=== PATIENT | male | born 2000 | race African-American/Black ===

== ENCOUNTER 2023-09-19 17:01 | Inpatient (IN) | payer OTHER ==
[2023-09-19 17:57] VITALS: BMI 23.6
[2023-09-19] MEDS ORDERED: LOPERAMIDE HCL 2 MG CAPSULE PO PRN (19:59)
[2023-09-19] MEDS ORDERED: IBUPROFEN 400 MG TABLET (FP) PO PRN (19:59)
[2023-09-19] MEDS ORDERED: MAG HYDROX/AL HYDROX/SIMETH 30 ML UNIT-DOSE CUP PO PRN (19:59)
[2023-09-19] MEDS ORDERED: MAGNESIUM HYDROX 2400MG/30ML ORAL SUSPENSION 30 ML CUP PO PRN (19:59)
[2023-09-19] MEDS ORDERED: ACETAMINOPHEN 325 MG TABLET (FP) PO PRN (19:59)
[2023-09-19] MEDS ORDERED: BENZOCAINE/MENTHOL (CHLORASEPTIC ) LOZENGE MM PRN (19:59)
[2023-09-19] MEDS ORDERED: METHOCARBAMOL 500 MG TABLET PO PRN (19:59)
[2023-09-19] MEDS ORDERED: POLYETHYLENE GLYCOL (HEALTHYLAX) 3350 17 GM PACKET PO PRN (19:59)
[2023-09-19] MEDS ORDERED: NALOXONE HCL (KLOXXADO) 8 MG SPRAY NS PRN (19:59)
[2023-09-19] MEDS ORDERED: BISMUTH SUBSALICYLATE 524 MG/30 ML PO PRN (19:59)
[2023-09-19] MEDS ORDERED: IBUPROFEN 600 MG TABLET (FP) PO PRN (19:59)
[2023-09-19] MEDS ORDERED: ONDANSETRON *ODT* 4 MG TABLET SL PRN (19:59)
[2023-09-19] MEDS ORDERED: NALOXONE HCL 0.4 MG/ML VIAL IM PRN (19:59)
[2023-09-19] MEDS ORDERED: guaiFENesin 600 MG TABLET.ER (FP) PO PRN (19:59)
[2023-09-19] MEDS ORDERED: BENZONATATE 200 MG CAPSULE PO PRN (19:59)
[2023-09-19] MEDS ORDERED: MELATONIN 5 MG TABLETS PO SCH (22:00)
[2023-09-19] MEDS ORDERED: TUBERCULIN PPD 5 TU/0.1ML VIAL ID ONE (22:54)
[2023-09-19] MEDS: THIAMINE HCL 100 MG TABLET (FP) PO SCH (22:55)
[2023-09-20] MEDS: PRENATAL VITAMINS W/ FOLIC ACID TABLET (FP) PO SCH (10:01)
[2023-09-20] MEDS: NICOTINE 14 MG/24 HOURS TOPICAL PATCH TD SCH (10:01)
[2023-09-20] MEDS: NICOTINE POLACRILEX 2 MG GUM BUC PRN ×2 (10:02→19:50)
[2023-09-20 10:45] LABS: CHLORIDE 106 mmol/L (98-107); POTASSIUM 4.3 mmol/L (3.5-5.1); SODIUM 139 mmol/L (136-145)
[2023-09-20 10:51] LABS: HEMATOCRIT 42.2 % (35.4-49); HEMOGLOBIN 13.9 GM/dL (11.7-16.9); MCH 29.4 pg (25.7-33.7); MCHC 32.9 g/dl (32.0-35.9); MEAN CELL VOLUME 89.4 fl (80-96); MEAN PLT VOLUME 7.3 fl (7.5-11.1); PLATELET COUNT 264 10^3/uL (134-434); RBC 4.71 M/mm3 (4.00-5.60); RDW 14.3 % (11.9-15.9); WHITE BLOOD COUNT 7.2 K/mm3 (4.0-10.0)
[2023-09-20 11:00] LABS: ALBUMIN 3.6 g/dl (3.4-5.0); BLOOD UREA NITROGEN 9.5 mg/dL (7-18)
[2023-09-20 11:01] LABS: BILIRUBIN,TOTAL 0.3 mg/dL (0.2-1); CALCIUM 9.3 mg/dL (8.5-10.1); GLUCOSE,RANDOM 96 mg/dL (74-106)
[2023-09-20 11:02] LABS: ANION GAP 6 mmol/L (4-13); CO2 27 mmol/L (21-32); SGPT/ALT 31 U/L (13-61)
[2023-09-20 11:06] LABS: SGOT/AST 15 U/L (15-37)
[2023-09-20 11:08] LABS: TOT PROT 6.6 g/dl (6.4-8.2)
[2023-09-20 11:10] LABS: ALK PHOS 55 U/L (45-117)
[2023-09-20] MEDS: LITHIUM CARBONATE 300 MG CAPSULE PO SCH (21:19)
[2023-09-20] MEDS: SUVOREXANT 5 MG TABLET PO PRN (21:19)
[2023-09-20] MEDS: THIAMINE HCL 100 MG TABLET (FP) PO SCH (21:20)
[2023-09-21] MEDS: PRENATAL VITAMINS W/ FOLIC ACID TABLET (FP) PO SCH (10:07)
[2023-09-21] MEDS: NICOTINE 14 MG/24 HOURS TOPICAL PATCH TD SCH (10:07)
[2023-09-21] MEDS: NICOTINE POLACRILEX 2 MG GUM BUC PRN ×2 (10:09→19:16)
[2023-09-21] MEDS: LITHIUM CARBONATE 300 MG CAPSULE PO SCH ×2 (10:47→21:37)
[2023-09-21] MEDS: ARIPiprazole 15 MG TABLET PO SCH (10:47)
[2023-09-21] MEDS: hydrOXYzine PAMOATE 25 MG CAPSULE (FP) PO PRN ×2 (12:40→21:38)
[2023-09-21] MEDS: THIAMINE HCL 100 MG TABLET (FP) PO SCH (21:36)
[2023-09-21] MEDS: SUVOREXANT 5 MG TABLET PO PRN (21:36)
[2023-09-22] MEDS: hydrOXYzine PAMOATE 25 MG CAPSULE (FP) PO PRN ×2 (07:56→20:15)
[2023-09-22] MEDS: PRENATAL VITAMINS W/ FOLIC ACID TABLET (FP) PO SCH (09:57)
[2023-09-22] MEDS: NICOTINE 14 MG/24 HOURS TOPICAL PATCH TD SCH (09:57)
[2023-09-22] MEDS: LITHIUM CARBONATE 300 MG CAPSULE PO SCH ×2 (09:58→21:25)
[2023-09-22] MEDS: ARIPiprazole 15 MG TABLET PO SCH (09:58)
[2023-09-22] MEDS: THIAMINE HCL 100 MG TABLET (FP) PO SCH (21:25)
[2023-09-22] MEDS: SUVOREXANT 5 MG TABLET PO PRN (21:26)
[2023-09-23] MEDS: hydrOXYzine PAMOATE 25 MG CAPSULE (FP) PO PRN ×3 (06:19→21:11)
[2023-09-23] MEDS: PRENATAL VITAMINS W/ FOLIC ACID TABLET (FP) PO SCH (09:59)
[2023-09-23] MEDS: ARIPiprazole 15 MG TABLET PO SCH (10:00)
[2023-09-23] MEDS: LITHIUM CARBONATE 300 MG CAPSULE PO SCH ×2 (10:00→21:11)
[2023-09-23] MEDS: NICOTINE 14 MG/24 HOURS TOPICAL PATCH TD SCH (10:00)
[2023-09-23] MEDS: NICOTINE POLACRILEX 2 MG GUM BUC PRN (10:01)
[2023-09-23] MEDS: THIAMINE HCL 100 MG TABLET (FP) PO SCH (21:10)
[2023-09-23] MEDS: SUVOREXANT 5 MG TABLET PO PRN (21:10)
[2023-09-24] MEDS: NICOTINE 14 MG/24 HOURS TOPICAL PATCH TD SCH (10:07)
[2023-09-24] MEDS: PRENATAL VITAMINS W/ FOLIC ACID TABLET (FP) PO SCH (10:07)
[2023-09-24] MEDS: LITHIUM CARBONATE 300 MG CAPSULE PO SCH ×2 (10:07→21:14)
[2023-09-24] MEDS: hydrOXYzine PAMOATE 25 MG CAPSULE (FP) PO PRN ×2 (10:07→21:15)
[2023-09-24] MEDS: ARIPiprazole 15 MG TABLET PO SCH (10:07)
[2023-09-24] MEDS: THIAMINE HCL 100 MG TABLET (FP) PO SCH (21:15)
[2023-09-24] MEDS: SUVOREXANT 5 MG TABLET PO PRN (21:15)
[2023-09-25] MEDS: LITHIUM CARBONATE 300 MG CAPSULE PO SCH ×2 (09:30→21:46)
[2023-09-25] MEDS: NICOTINE 14 MG/24 HOURS TOPICAL PATCH TD SCH (09:31)
[2023-09-25] MEDS: hydrOXYzine PAMOATE 25 MG CAPSULE (FP) PO PRN ×2 (09:31→21:46)
[2023-09-25] MEDS: ARIPiprazole 15 MG TABLET PO SCH (09:31)
[2023-09-25] MEDS: PRENATAL VITAMINS W/ FOLIC ACID TABLET (FP) PO SCH (09:31)
[2023-09-25] MEDS: SUVOREXANT 5 MG TABLET PO PRN (21:46)
[2023-09-25] MEDS: THIAMINE HCL 100 MG TABLET (FP) PO SCH (21:46)
[2023-09-26] MEDS: LITHIUM CARBONATE 300 MG CAPSULE PO SCH ×2 (10:10→21:12)
[2023-09-26] MEDS: PRENATAL VITAMINS W/ FOLIC ACID TABLET (FP) PO SCH (10:10)
[2023-09-26] MEDS: ARIPiprazole 15 MG TABLET PO SCH (10:10)
[2023-09-26] MEDS: NICOTINE 14 MG/24 HOURS TOPICAL PATCH TD SCH (10:11)
[2023-09-26] MEDS: hydrOXYzine PAMOATE 25 MG CAPSULE (FP) PO PRN ×2 (13:54→21:14)
[2023-09-26] MEDS: THIAMINE HCL 100 MG TABLET (FP) PO SCH (21:12)
[2023-09-26] MEDS: SUVOREXANT 5 MG TABLET PO PRN (21:57)
[2023-09-27] MEDS: hydrOXYzine PAMOATE 25 MG CAPSULE (FP) PO PRN ×3 (07:42→21:15)
[2023-09-27] MEDS: PRENATAL VITAMINS W/ FOLIC ACID TABLET (FP) PO SCH (09:48)
[2023-09-27] MEDS: NICOTINE 14 MG/24 HOURS TOPICAL PATCH TD SCH (09:48)
[2023-09-27] MEDS: NICOTINE POLACRILEX 2 MG GUM BUC PRN ×2 (09:48→21:16)
[2023-09-27] MEDS: LITHIUM CARBONATE 300 MG CAPSULE PO SCH ×2 (09:48→21:14)
[2023-09-27] MEDS: ARIPiprazole 15 MG TABLET PO SCH (09:48)
[2023-09-27] MEDS ORDERED: guaiFENesin 600 MG TABLET.ER (FP) PO PRN (11:08)
[2023-09-27] MEDS ORDERED: AMMONIUM LACTATE 12% LOTION 225 GM BOTTLE TP PRN (11:08)
[2023-09-27] MEDS ORDERED: BENZOCAINE/MENTHOL (CHLORASEPTIC ) LOZENGE MM PRN (11:08)
[2023-09-27] MEDS ORDERED: DICYCLOMINE HCL 10 MG CAPSULE PO PRN (11:08)
[2023-09-27] MEDS ORDERED: BENZONATATE 200 MG CAPSULE PO PRN (11:08)
[2023-09-27] MEDS ORDERED: cloNIDine HCL 0.1 MG TABLET PO ONE (11:10)
[2023-09-27] MEDS ORDERED: BUPRENORPHINE HCL 150 MCG, BUPRENORPHINE HCL 75 MCG BC ONE (11:10)
[2023-09-27] MEDS ORDERED: BUPRENORPHINE HCL 150 MCG, BUPRENORPHINE HCL 75 MCG BC PRN (11:10)
[2023-09-27] MEDS ORDERED: cloNIDine HCL 0.1 MG TABLET PO PRN (15:10)
[2023-09-27] MEDS: SUVOREXANT 5 MG TABLET PO PRN (21:14)
[2023-09-27] MEDS: THIAMINE HCL 100 MG TABLET (FP) PO SCH (21:14)
[2023-09-28] MEDS ORDERED: BUPRENORPHINE HCL 150 MCG, BUPRENORPHINE HCL 75 MCG BC PRN
[2023-09-28] MEDS: BUPRENORPHINE HCL 150 MCG, BUPRENORPHINE HCL 75 MCG BC SCH ×2 (07:14→18:48)
[2023-09-28 07:17] VITALS: BP 104/66; PULSE 84; RESP 18; TEMP 97.7
[2023-09-28] MEDS: NICOTINE POLACRILEX 2 MG GUM BUC PRN (08:01)
[2023-09-28] MEDS: NICOTINE 14 MG/24 HOURS TOPICAL PATCH TD SCH (09:50)
[2023-09-28] MEDS: PRENATAL VITAMINS W/ FOLIC ACID TABLET (FP) PO SCH (09:50)
[2023-09-28] MEDS: ARIPiprazole 15 MG TABLET PO SCH (09:50)
[2023-09-28] MEDS: LITHIUM CARBONATE 300 MG CAPSULE PO SCH (09:50)
[2023-09-28] MEDS ORDERED: BACLOFEN 10 MG TABLET (FP) PO SCH (10:00)
[2023-09-29] MEDS ORDERED: BUPRENORPHINE HCL 450 MCG FILM BC SCH (06:00)
[2023-09-30] MEDS ORDERED: BUPRENORPHINE/NALOXONE 4 MG/1 MG FILM PACKET SL SCH (06:00)
== END 2023-09-28 18:12 | disposition left against medical advice (07) | DRG 770 ==
LOC: YASAS 17:01 → Y5N 22:07
PROVIDERS: ADMIT Allergy & Immunology; ATTEND Psychiatry & Neurology Pain Medicine
PROC: HZ42ZZZ Group Counseling for Substance Abuse Treatment, Cognitive-Behavioral (ICD-10-PCS; principal; 2023-09-19)
PROC: HZ2ZZZZ Detoxification Services for Substance Abuse Treatment (ICD-10-PCS; 2023-09-19)
DX: F14.20 Cocaine dependence, uncomplicated (principal); F11.20 Opioid dependence, uncomplicated; F12.20 Cannabis dependence, uncomplicated; F17.210 Nicotine dependence, cigarettes, uncomplicated; F32.9 Major depressive disorder, single episode, unspecified; F41.9 Anxiety disorder, unspecified; F19.24 Other psychoactive substance dependence with psychoactive substance-induced mood disorder; I10 Essential (primary) hypertension; Z91.51 Personal history of suicidal behavior; Z86.69 Personal history of other diseases of the nervous system and sense organs; Z56.0 Unemployment, unspecified
CPT/HCPCS: 36415; 80053; 80178; 80307; 85027; 86780; 87635; 93005; 93010; J0475